=== PATIENT | female | born 1990 | race Two or more races ===

== ENCOUNTER 2020-12-27 10:18 | Outpatient (CLI) | payer OTHER | END 2020-12-27 10:36 | disposition home or self-care (01) | LOC: RX STUDY 10:18 | PROVIDERS: ATTEND Obstetrics & Gynecology | DX: N91.1 Secondary amenorrhea (principal) ==

== ENCOUNTER 2021-02-15 08:56 | Day surgery (SDC) | payer OTHER | END 2021-02-15 17:30 | disposition home or self-care (01) | LOC: CIR.AMB 08:56 | PROVIDERS: ATTEND Obstetrics & Gynecology | DX: O02.1 Missed abortion (principal); Z20.822 Contact with and (suspected) exposure to COVID-19 ==

== ENCOUNTER 2022-03-05 10:56 | Outpatient (CLI) | payer OTHER | END 2022-03-05 11:38 | disposition home or self-care (01) | LOC: NST 10:56 | PROVIDERS: ATTEND Obstetrics & Gynecology Maternal & Fetal Medicine | DX: Z34.83 Encounter for supervision of other normal pregnancy, third trimester (principal) ==

== ENCOUNTER 2022-03-18 11:39 | Inpatient (IN) | payer OTHER ==
[~2022-03-18] VITALS: Ht 170.2 cm; Wt 86.2 kg
[2022-03-19] MEDS ORDERED: SYNTHROID50 MCG (16:33)
[2022-03-20] MEDS ORDERED: Procardia Xl 30MG TA PO (07:53)
== END 2022-03-20 10:27 | disposition home or self-care (01) | DRG 833 ==
LOC: NST 11:39 → LDR 11:57 → OB/GYN 11:57 → LDR 13:48 → OB/GYN 03-19 07:58 → LDR 03-19 08:52 → OB/GYN 03-19 10:17
PROVIDERS: ADMIT Obstetrics & Gynecology Maternal & Fetal Medicine; ATTEND Obstetrics & Gynecology Maternal & Fetal Medicine
PROC: 4A1HXCZ Monitoring of Products of Conception, Cardiac Rate, External Approach (ICD-10-PCS; principal; 2022-03-18)
DX: O47.03 False labor before 37 completed weeks of gestation, third trimester (principal); Z3A.32 32 weeks gestation of pregnancy; Z20.822 Contact with and (suspected) exposure to COVID-19

== ENCOUNTER 2022-03-23 08:08 | Outpatient (CLI) | payer OTHER ==
[~2022-03-23 08:08] MED LIST: Procardia Xl 30MG TA PO; SYNTHROID50 MCG
== END 2022-03-23 08:55 | disposition home or self-care (01) ==
LOC: NST 08:08
PROVIDERS: ATTEND Obstetrics & Gynecology Maternal & Fetal Medicine
DX: Z34.83 Encounter for supervision of other normal pregnancy, third trimester (principal)